=== PATIENT | male | born 2000 | race Caucasian/White ===

== ENCOUNTER 2018-04-06 08:15 | Emergency (ER) | payer OTHER ==
--- NOTE | 2018-04-06 08:35 | EDPHY ---
H & P Time Seen by Provider: 04/06/18 08:34 HPI/ROS: CHIEF COMPLAINT: Severe abdominal pain HISTORY OF PRESENT ILLNESS: Patient started with a sore throat on Thursday with a cough and some yellow white mucus. Symptoms persisted over the weekend but woke up this morning at 4:30 a.m. With severe abdominal pain. Generalized, worse with movement, does not radiate. Associated with nausea. No fever chills or urinary symptoms. No recent injury or trauma. REVIEW OF SYSTEMS: Eye: no change in vision ENT: HPI Cardiac: no chest pain or syncope Pulmonary: no cough or SOB Abdomen: HPI Musculoskeletal: no back pain Skin: no rash Neuro: no headache Constitutional: Feels feverish and hot : no urinary symptoms A comprehensive 10 point review of systems is otherwise negative aside from elements mentioned in the history of present illness. PAST MEDICAL HISTORY: History of anaphylaxis, asthma Social history: Here with his girlfriend General Appearance: Alert and conversant, cooperative. Eyes: No scleral icterus. ENT, Mouth: Pharyngeal exudate and erythema bilaterally, no trismus, no stridor or drooling. Respiratory: Normal respiratory effort, breath sounds equal, lungs are clear to auscultation. Cardiovascular: Regular rate and rhythm. Gastrointestinal: Severe abdominal tenderness which is diffuse and greater in the upper abdomen than lower abdomen. No rebound or guarding. Normal male without hernia or testicular abnormality. Neurological: Alert, face symmetric, normal motor and sensory in extremities. Skin: Warm and dry, no rashes. Musculoskeletal: No peripheral edema. Normal range of motion of the neck. Psychiatric: Not agitated. Emergency Department course/MDM: Patient appears in moderate to severe discomfort. I-STAT performed, CT scanning discussed and consented. Fentanyl 100 mcg IV, Zofran 4 mg IV. Strep and mono test performed. Procedure: Abdominal trauma ultrasound. Indication: Severe abdominal pain with recent sore throat, concern for splenic rupture. Limited echocardiogram for pericardial effusion. Limited bedside ultrasound was performed and interpreted by myself for the indication of: thoracoabdominal trauma utilizing the thoracoabdominal emergency ultrasound protocol. Limited transthoracic echocardiogram: The pericardium was visualized and found to be negative for pericardial fluid. The study was negative for pericardial effusion. Limited abdominal ultrasound for abdominal pain with possibility of splenic rupture. 1) The right upper quadrant was visualized and was found to be negative for intraperitoneal fluid. The right upper quadrant component of the study was felt to be suboptimal technically. 2) The left upper quadrant was visualized and found to be negative for intraperitoneal fluid. The study was felt to be negative for free intraperitoneal fluid. Limited pelvic ultrasound was conducted for abdominal trauma. The bladder was visualized and did not reveal an anechoic area outside of the adjacent urinary bladder. The study was felt to be negative for free intraperitoneal fluid. 1021: Results discussed, no peritoneal signs at this time. Warned regarding contact sports, biking or skiing and possibility of splenic injury. Appears comfortable at this time. Smoking Status: Never smoked Constitutional: Initial Vital Signs Temperature (C) 37 C 04/06/18 08:20 Heart Rate 83 04/06/18 08:20 Respiratory Rate 16 04/06/18 08:20 Blood Pressure 122/73 H 04/06/18 08:20 O2 Sat (%) 96 04/06/18 08:20 O2 Delivery Mode Room Air O2 (L/minute) 2 Allergies/Adverse Reactions: peanut Allergy (Verified 04/06/18 08:19) Penicillins Allergy (Verified 04/06/18 08:19) tree nut Allergy (Verified 04/06/18 08:19) Home Medications: Medication Instructions Recorded An Antidepressant 04/06/18 Epipen 0.3 MG 04/06/18 Medical Decision Making - Diagnostics Imaging Results: Imaging Impressions Abdomen CT 04/06/18 09:10 Impression: Splenomegaly with likely reactive retroperitoneal adenopathy. Findings and recommendations discussed with ANJANA ANTHONY at 954 hour, 04/06/2018. Imaging: Discussed imaging studies w/ enlisted advisor Radiologist Differential Diagnosis: Differential diagnosis considered for abdominal pain including but not limited to splenic rupture, appendicitis, cholecystitis, pancreatitis, gastroenteritis. - Data Points Laboratory Results: Laboratory Results 04/06/18 08:45 04/06/18 08:45 04/06/18 04/06/18 04/06/18 Unknown 08:56 08:45 WBC RBC Hgb POC Hgb 17.0 gm/dL gm/dL (13.7-17.5) Hct POC Hct 50 % % (40-51) MCV MCH MCHC RDW Plt Count MPV Neut % (Auto) Lymph % (Auto) Wharton % (Auto) Eos % (Auto) Baso % (Auto) Nucleat RBC Rel Count Absolute Neuts (auto) Absolute Lymphs (auto) Absolute Monos (auto) Absolute Eos (auto) Absolute Basos (auto) Absolute Nucleated RBC Immature Gran % Seg Neutrophils % Band Neutrophils % Lymphocytes % Monocytes % Eosinophils % Basophils % Metamyelocytes % Myelocytes % Promyelocytes % Blast Cells % Immature Gran # Absolute Seg Neuts Absolute Band Neuts Absolute Lymphocytes Absolute Monocytes Absolute Eosinophils Absolute Basophils Absolute Metamyelocyte Absolute Myelocytes Absolute Promyelocytes Absolute Plasma Cells Nucleated RBCs Absolute Blast Cells Plasma Cells % Platelet Estimate Smear Review By POC Sodium 140 mEq/L mEq/L (135-145) Sodium 140 mEq/L mEq/L (135-145) POC Potassium 4.1 mEq/L mEq/L (3.3-5.0) Potassium 4.4 mEq/L mEq/L (3.3-5.0) POC Chloride 101 mEq/L mEq/L (97-110) Chloride 101 mEq/L mEq/L (97-110) Carbon Dioxide 27 mEq/l mEq/l (22-31) Anion Gap 12 mEq/L mEq/L (8-16) POC BUN 11 mg/dL mg/dL (7-23) BUN 13 mg/dL mg/dL (7-23) Creatinine 0.7 mg/dL mg/dL (0.7-1.3) POC Creatinine 0.7 mg/dL mg/dL (0.7-1.3) Estimated GFR > 60 Glucose 109 mg/dL H mg/dL (70-100) POC Glucose 111 mg/dL H mg/dL (70-100) Calcium 10.1 mg/dL mg/dL (8.5-10.4) Total Bilirubin 1.0 mg/dL mg/dL (0.1-1.4) Conjugated Bilirubin 0.2 mg/dL mg/dL (0.0-0.5) Unconjugated Bilirubin 0.8 mg/dL mg/dL (0.0-1.1) AST 36 IU/L IU/L (17-59) ALT 52 IU/L IU/L (21-72) Alkaline Phosphatase 97 IU/L IU/L (38-126) Total Protein 7.8 g/dL g/dL (6.3-8.2) Albumin 4.6 g/dL g/dL (3.5-5.0) Lipase 31 IU/L IU/L (23-300) Monoscreen Group A Strep Screen Group A Strep DNA NEGATIVE (NEGATIVE) 04/06/18 04/06/18 04/06/18 08:45 08:45 08:22 WBC 9.32 10^3/uL 10^3/uL (3.80-9.50) RBC 5.70 10^6/uL 10^6/uL (4.40-6.38) Hgb 17.1 g/dL g/dL (13.7-17.5) POC Hgb Hct 48.0 % % (40.0-51.0) POC Hct MCV 84.2 fL fL (81.5-99.8) MCH 30.0 pg pg (27.9-34.1) MCHC 35.6 g/dL g/dL (32.4-36.7) RDW 11.7 % % (11.5-15.2) Plt Count 209 10^3/uL 10^3/uL (150-400) MPV 9.4 fL fL (8.7-11.7) Neut % (Auto) 46.2 % % (39.3-74.2) Lymph % (Auto) 40.7 % % (15.0-45.0) Wharton % (Auto) 11.5 % % (4.5-13.0) Eos % (Auto) 0.6 % % (0.6-7.6) Baso % (Auto) 0.8 % % (0.3-1.7) Nucleat RBC Rel Count 0.0 % % (0.0-0.2) Absolute Neuts (auto) 4.31 10^3/uL 10^3/uL (1.70-6.50) Absolute Lymphs (auto) 3.79 10^3/uL H 10^3/uL (1.00-3.00) Absolute Monos (auto) 1.07 10^3/uL H 10^3/uL (0.30-0.80) Absolute Eos (auto) 0.06 10^3/uL 10^3/uL (0.03-0.40) Absolute Basos (auto) 0.07 10^3/uL 10^3/uL (0.02-0.10) Absolute Nucleated RBC 0.00 10^3/uL 10^3/uL (0-0.01) Immature Gran % 0.2 % % (0.0-1.1) Seg Neutrophils % 56.0 % % Band Neutrophils % 0.0 % % Lymphocytes % 34.0 % % Monocytes % 7.0 % % Eosinophils % 1.0 % % Basophils % 1.0 % % Metamyelocytes % 0.0 % % Myelocytes % 0.0 % % Promyelocytes % 0.0 % % Blast Cells % 0.0 % % Immature Gran # 0.02 10^3/uL 10^3/uL (0.00-0.10) Absolute Seg Neuts 5.22 10^/uL 10^/uL (1.70-6.50) Absolute Band Neuts 0.00 10^3/uL 10^3/uL (0.00-0.70) Absolute Lymphocytes 3.17 10^3/uL H 10^3/uL (1.00-3.00) Absolute Monocytes 0.65 10^3/uL 10^3/uL (0.30-0.80) Absolute Eosinophils 0.09 10^3/uL 10^3/uL (0.03-0.40) Absolute Basophils 0.09 10^3/uL 10^3/uL (0.02-0.10) Absolute Metamyelocyte 0.00 10^3/mL 10^3/mL (0.00-0.00) Absolute Myelocytes 0.00 10^3/mL 10^3/mL (0.00-0.00) Absolute Promyelocytes 0.00 10^3/uL 10^3/uL (0.00-0.00) Absolute Plasma Cells 0.00 10^3/uL 10^3/uL (0.00-0.00) Nucleated RBCs 6.0 /100 WBC H /100 WBC (0-0) Absolute Blast Cells 0.00 10^3/uL 10^3/uL (0.00-0.00) Plasma Cells % 0.0 % % Platelet Estimate ADEQUATE (ADEQ) Smear Review By Pending POC Sodium Sodium POC Potassium Potassium POC Chloride Chloride Carbon Dioxide Anion Gap POC BUN BUN Creatinine POC Creatinine Estimated GFR Glucose POC Glucose Calcium Total Bilirubin Conjugated Bilirubin Unconjugated Bilirubin AST ALT Alkaline Phosphatase Total Protein Albumin Lipase Monoscreen POSITIVE H (NEGATIVE) Group A Strep Screen NEGATIVE (NEGATIVE) Group A Strep DNA Medications Given: Discontinued Medications Fentanyl (Sublimaze) 100 mcg IVP EDNOW ONE Stop: 10/09/18 08:46 Last Admin: 04/06/18 08:55 Dose: 100 mcg Fentanyl (Sublimaze) 100 mcg IVP EDNOW ONE Stop: 04/06/18 09:27 Last Admin: 04/06/18 09:37 Dose: Not Given Sodium Chloride (Ns) 1,000 mls @ 0 mls/hr IV EDNOW ONE; Wide Open PRN Reason: Protocol Stop: 04/06/18 08:46 Last Admin: 04/06/18 08:55 Dose: 1,000 mls Ondansetron HCl (Zofran) 4 mg IVP EDNOW ONE Stop: 04/06/18 08:46 Last Admin: 04/06/18 08:56 Dose: 4 mg Ondansetron HCl (Zofran) 4 mg IVP EDNOW ONE Stop: 04/06/18 09:27 Last Admin: 04/06/18 09:37 Dose: Not Given Point of Care Test Results: Chemistry 04/06/18 08:56 POC Sodium 140 mEq/L mEq/L (135-145) POC Potassium 4.1 mEq/L mEq/L (3.3-5.0) POC Chloride 101 mEq/L mEq/L (97-110) POC BUN 11 mg/dL mg/dL (7-23) POC Creatinine 0.7 mg/dL mg/dL (0.7-1.3) POC Glucose 111 mg/dL H mg/dL (70-100) ISTAT H&H 04/06/18 08:56 POC Hgb 17.0 gm/dL gm/dL (13.7-17.5) POC Hct 50 % % (40-51) Departure - Departure Disposition: Home, Routine, Self-Care Clinical Impression: Mononucleosis Abdominal pain Qualifiers: Abdominal location: generalized Qualified Code(s): R10.84 - Generalized abdominal pain Condition: Good Instructions: Mononucleosis (ED), Acute Abdominal Pain (ED) Additional Instructions: No bicycle riding or skiing or other potentially contact sports until you have been cleared by follow-up medical provider. You have a diagnosis of mononucleosis on blood testing. Your CT scan showed an enlarged spleen but no internal bleeding. Referrals: [facility] [Cl[facility]] - 2-3 days, call for appt. Stand Alone Forms: School Excuse
[2018-04-06] MEDS ORDERED: ONDANSETRON 4 MG/2 ML VIAL IVP ONE ×2 (08:45→09:26)
[2018-04-06] MEDS ORDERED: fentaNYL 100 MCG/2 ML INJ IVP ONE ×2 (08:45→09:26)
[2018-04-06] MEDS ORDERED: NS 1,000 ML IV ONE (08:45)
[2018-04-06 09:06] LABS: PLATELET COUNT 209 10^3/uL (150-400)
[2018-04-06] MEDS ORDERED: IOPAMIDOL (ISOVUE-300) 100 ML BTL ONE (09:16)
[2018-04-06 10:44] VITALS: BP 116/75
== END 2018-04-06 10:46 | disposition home or self-care (01) ==
DX: R10.84 Generalized abdominal pain (principal); B27.90 Infectious mononucleosis, unspecified without complication; E86.9 Volume depletion, unspecified
CPT/HCPCS: 82435-PO; 82565-PO; 82947-PO; 84132-PO; 84295-PO; 84520-PO; 85014-PO; 96374; J2405; J3010; Q9967